=== PATIENT | female | born 1955 | race Asian ===

== ENCOUNTER 2016-06-25 10:42 | Emergency (ER) | payer BC, OTHER ==
[2016-06-25 10:49] VITALS: TEMP 98; BMI 25.4
[2016-06-25 12:18] LABS: URINE APPEARANCE CLEAR; URINE BILIRUBIN NEGATIVE (NEGATIVE); URINE BLOOD NEGATIVE (NEGATIVE); URINE COLOR STRAW; URINE GLUCOSE (UA) 3+ (NEGATIVE); URINE KETONE NEGATIVE (NEGATIVE); URINE LEUK ESTERASE NEGATIVE (NEGATIVE); URINE NITRITE NEGATIVE (NEGATIVE); URINE PROTEIN NEGATIVE (NEGATIVE); URINE UROBILINOGEN NEGATIVE E.U./dl (0.2-1.0)
[2016-06-25 13:05] LABS: BASOPHIL 1.1 % (0-2.0); EOSINOPHIL 4.3 % (0-4.5); MCH 28.8 pg (25.7-33.7); MEAN CELL VOLUME 84.8 fl (80-96); MEAN PLT VOLUME 7.9 fl (7.5-11.1); NEUTROPHILS 62.4 % (42.8-82.8); PLATELET COUNT 258 K/MM3 (134-434); RDW 13.3 % (11.6-15.6)
--- NOTE | 2016-06-25 13:37 | PDOC ---
History of Present Illness <Laura Sharma - Last Filed: 06/25/16 15:50> - General History Source: Patient Exam Limitations: No Limitations - History of Present Illness Travel History: Yes Initial Comments: 06/25/16 15:54 61y F hx of afib, niddm, fatty liver, presents with back pain/rlq pain since yesterday. Patient states the pain seems to be worse when she is moving around. It is associated with nausea without any vomiting. The patient denies any fevers, chills. Patient denies any diarrhea, dysuria, hematuria. pt was originall seen in [facility] for [facility] pain, but due to compaint of abd pain was sent to the [facility] ed for evaluation. pt denies nay numbes/tingling/weakness. 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 <Baljit Bennett - Last Filed: 06/25/16 17:05> - General Chief Complaint: Back Pain Stated Complaint: LOWER BACK PAIN/ RT SIDE PAIN Time Seen by Provider: 06/25/16 11:37 Past History <Laura Sharma - Last Filed: 06/25/16 15:50> - Past Medical History Cardiac Disorders: Yes (AFIB) Diabetes: Yes (NIDDM) Liver Disease: Yes (FATTY LIVER) - Immunization History Td Vaccination: No Immunization Up to Date: No - Psycho/Social/Smoking Cessation Hx Anxiety: No Suicidal Ideation: No Smoking Status: No Smoking History: Never smoked Have you smoked in the past 12 months: No Number of Cigarettes Smoked Daily: 0 Information on smoking cessation initiated: No Hx Alcohol Use: No Drug/Substance Use Hx: No Substance Use Type: None <Baljit Bennett - Last Filed: 06/25/16 17:05> - Past Medical History Allergies/Adverse Reactions: Allergies Allergy/AdvReac Type Severity Reaction Status Date / Time diphenhydramine HCl Allergy Verified 06/25/16 10:49 [From Benadryl] IV CONTRAST Allergy Severe Hives Uncoded 06/25/16 10:49 Home Medications: Ambulatory Orders Sitagliptin Phos/Metformin HCl [Janumet 50-1,000 mg Tablet] 1 each PO BID Aspirin Coated [Ecotrin -] 81 mg PO DAILY 12/20/14 Glimepiride 4 mg PO BID 12/20/14 Metoprolol Tartrate [Lopressor -] 50 mg PO DAILY 12/20/14 Docusate Sodium [Colace -] 100 mg PO BID #14 capsule 06/25/16 Psyllium Husk [Metamucil] 660 gm PO BID #1 bottle 06/25/16 Review of Systems - Review of Systems Able to Perform ROS?: Yes Comments:: 06/25/16 15:56 Constitutional - no reported Fever, Chills, weakness, HEENT: no reported vision changes, sore throat Respiratory: no reported cough, sob, hemoptysis Cardiac: no reported chest pain, palpitations, light headedness, leg swelling Abd/GI: +abd pain, nausea, no reported vomiting, blood per rectum, melena, diarrhea : no reported dysuria, frequency, discharge Musculskelatal -+ back pain, no reported joint swelling skin - no reported bruising, erythema, rash neurological: no reported headache, numbness, focal weakness, tingling, ataxia, weakness hematologic: no reported anemia, easy bruising, easy bleeding <Baljit Bennett - Last Filed: 06/25/16 17:05> *Physical Exam - Vital Signs Last Vital Signs Temp Pulse Resp BP Pulse Ox 98 F 88 20 137/81 99 06/25/16 10:46 06/25/16 15:31 06/25/16 15:31 06/25/16 15:31 06/25/16 15:31 <Laura Sharma - Last Filed: 06/25/16 15:50> - Vital Signs Last Vital Signs Temp Pulse Resp BP Pulse Ox 98 F 80 18 148/79 100 06/25/16 10:46 06/25/16 10:46 06/25/16 10:46 06/25/16 10:46 06/25/16 10:46 - Physical Exam Comments: 06/25/16 15:57 GENERAL: The patient is awake, alert, and fully oriented, Nontoxic - in no acute distress. HEAD: Normocephalic, atraumatic. EYES: extraocular movements intact, sclera anicteric, conjunctiva clear. ENT: Normal voice, Moist mucous membranes. NECK: Normal range of motion, supple LUNGS: Breath sounds equal, clear to auscultation bilaterally. No wheezes, no rhonchi, no rales. HEART: Regular rate and rhythm, normal S1 and S2 without murmur, rub or gallop. ABDOMEN: mild rlq tenderness, mild tenderness in the R flank/r paraspinal region , BACK: No midline tenderness in ervical/thoracic/lumbar region, no crepitus, erythema, fluctuance EXTREMITIES: Normal range of motion, no edema. No clubbing or cyanosis. No cords, erythema, or tenderness. NEUROLOGICAL: No facial assymetry, Normal speech, normal gait. PSYCH: Normal mood, normal affect. SKIN: Warm, Dry, normal turgor, <Donald,Baljit - Last Filed: 06/25/16 17:05> ED Treatment Course - LABORATORY CBC & Chemistry Diagram: 06/25/16 12:50 06/25/16 12:50 - ADDITIONAL ORDERS Additional order review: Laboratory Results 06/25/16 06/25/16 12:50 12:11 Sodium 139 Potassium 4.4 Chloride 101 Carbon Dioxide 27 Anion Gap 11 BUN 19 H Creatinine 1.1 H D Creat Clearance w eGFR 50.67 Random Glucose 161 H Calcium 9.3 Total Bilirubin 0.5 D AST 19 ALT 36 Alkaline Phosphatase 90 Total Protein 8.0 Albumin 4.2 Total Amylase 88 Lipase 409 H Urine Color Straw Urine Appearance Clear Urine pH 6.0 Ur Specific Hartly 1.028 Urine Protein Negative Urine Glucose (UA) 3+ H Urine Ketones Negative Urine Blood Negative Urine Nitrite Negative Urine Bilirubin Negative Urine Urobilinogen Negative Ur Leukocyte Esterase Negative 06/25/16 12:50 RBC 5.30 H MCV 84.8 MCHC 34.0 RDW 13.3 MPV 7.9 Neutrophils % 62.4 Lymphocytes % 23.9 Monocytes % 8.3 Eosinophils % 4.3 Basophils % 1.1 - RADIOLOGY Radiograph Interpretation: 06/25/16 15:50 EXAM: CT/ABDOMEN PELVIS CT W/O CONTR CT IMPRESSION: Axial imaging completed with coronal and sagittal reformations demonstrating normal visualization of midline urinary bladder with normal visualization of region of uterus and both adnexa Normal appendix is visualized in the right lower quadrant no CT evidence of appendicitis or appendicolith. Large amount of retained fecal material throughout the right and left colon with no CT findings of colitis or diverticulitis identified Symmetric appearance of both kidneys with no hydronephrosis or stones No adrenal nodules with atherosclerotic changes of the abdominal aorta with no aneurysm. No free air or free fluid with no signs of bowel obstruction and no inguinal or abdominal wall hernias identified Normal gallbladder is seen with normal visualization of liver and spleen including region of stomach and pancreas No infiltration of the mesentery or retroperitoneum is identified Normal lung bases with no free air or free fluid identified No suspicious osseous lesions seen on bone windows Normal region of cecum and terminal ileum identified - Medications Given in the ED: ED Medications Discontinued Medications Generic Name Dose Route Start Last Admin Trade Name Kiara PRN Reason Stop Dose Admin Sodium Chloride 1,000 mls @ 1,000 mls/hr 06/25/16 13:50 06/25/16 14:04 Normal Saline - IV 06/25/16 14:49 1,000 mls/hr .Q1H ONE Administration Morphine Sulfate 4 mg 06/25/16 13:50 06/25/16 14:04 Morphine Injection - IVPUSH 06/25/16 13:51 Not Given ONCE ONE <Laura Sharma - Last Filed: 06/25/16 15:50> - LABORATORY CBC & Chemistry Diagram: 06/25/16 12:50 06/25/16 12:50 - ADDITIONAL ORDERS Additional order review: Laboratory Results 06/25/16 12:11 Urine Color Straw Urine Appearance Clear Urine pH 6.0 Ur Specific Hartly 1.028 Urine Protein Negative Urine Glucose (UA) 3+ H Urine Ketones Negative Urine Blood Negative Urine Nitrite Negative Urine Bilirubin Negative Urine Urobilinogen Negative Ur Leukocyte Esterase Negative 06/25/16 12:50 RBC 5.30 H MCV 84.8 MCHC 34.0 RDW 13.3 MPV 7.9 Neutrophils % 62.4 Lymphocytes % 23.9 Monocytes % 8.3 Eosinophils % 4.3 Basophils % 1.1 - RADIOLOGY Radiology Studies Ordered: Category Date Time Status ABDOMEN & PELVIS CT WITH CONTR [CT] Stat CT Scan 06/25/16 13:36 Ordered <Baljit Bennett - Last Filed: 06/25/16 17:05> Medical Decision Making - Medical Decision Making 06/25/16 15:54 60 06/25/16 16:[address] c/w constipation n other acut disease labs reviewed lipase slightly elevated - no epigastric pain and sypmtoms inconsistent with pancreatitis pt tolerated PO intake of with pmd fu will d/c the pt with ibuprofen/tylenol for back pain colace and metamucil for constipation will have pt fu with pmd return precautions were discussed I discussed the physical exam findings, ancillary test results and final diagnoses with the patient. I answered all of the patient's questions. The patient was satisfied with the care received and felt comfortable with the discharge plan and treatment plan. The patient will call their primary care physician within 24 hours to arrange follow-up and will return to the Emergency Department with any new, persistent or worsening symptoms. <Baljit Bennett - Last Filed: 06/25/16 17:05> *DC/Admit/Observation/Transfer - Attestations Scribe Attestion: 06/25/16 15:51 Documentation prepared by Laura Sharma, acting as medical technologist hematology for Baljit Bennett MD. <Laura Sharma - Last Filed: 06/25/16 15:50> - Discharge Dispostion Admit: No <Baljit Bennett - Last Filed: 06/25/16 17:05> Diagnosis at time of Disposition: Low back pain Qualifiers: Chronicity: acute Back pain laterality: right Sciatica presence: without sciatica Qualified Code(s): M54.5 - Low back pain Constipation Qualifiers: Constipation type: other constipation type Qualified Code(s): K59.09 - Other constipation - Discharge Dispostion Disposition: HOME Condition at time of disposition: Improved - Prescriptions Prescriptions: Docusate Sodium [Colace -] 100 mg PO BID #14 capsule Psyllium Husk [Metamucil] 660 gm PO BID #1 bottle - Referrals Referrals: Silvia Davila MD [Primary Care Provider] - - Patient Instructions Printed Discharge Instructions: DI for Constipation, DI for Low Back Pain Additional Instructions: Return to the emergency department immediately with ANY new, persistent or worsening symptoms including worsening abdominal pain, fevers, chills, inability to tolerate oral intake, numbness, tingling, weakness, fevers or any other concerns. Please increase your water intake, increasing physical activity and increase her fiber intake Take ibuprofen for pain as needed. Apply heat to your sore muscles. You MUST call and follow up with your doctor tomorrow for further evaluation of your symptoms. Results were discussed with you. Please make sure your doctor reviews the results of your emergency evaluation. Print Language: SETSWANA
[2016-06-25 13:43] LABS: ALBUMIN 4.2 g/dl (3.4-5.0); BILIRUBIN,TOTAL 0.5 mg/dL (0.2-1.0); CALCIUM 9.3 mg/dL (8.5-10.1); CREATININE 1.1 mg/dL (0.55-1.02)
[2016-06-25] MEDS ORDERED: morphine CARPU-JECT 4 MG/1 ML DISP.SYRIN IVPUSH ONE (13:50)
[2016-06-25] MEDS ORDERED: SODIUM CHLORIDE 1,000 ML IV ONE (13:50)
[2016-06-25] MEDS ORDERED: morphine CARPU-JECT 4 MG/1 ML DISP.SYRIN ONE (13:59)
[2016-06-25 15:32] VITALS: BP 137/81; PULSE 88
== END 2016-06-25 17:05 | disposition home or self-care (01) ==
LOC: JER 10:42 → JERFT 10:42 → JER 17:05
PROC: 3E0337Z Introduction of Electrolytic and Water Balance Substance into Peripheral Vein, Percutaneous Approach (ICD-10-PCS; principal; 2016-06-25)
DX: K59.09 Other constipation (principal); M54.5 Low back pain; I48.91 Unspecified atrial fibrillation; E11.9 Type 2 diabetes mellitus without complications; Z79.84 Long term (current) use of oral hypoglycemic drugs; K76.0 Fatty (change of) liver, not elsewhere classified
CPT/HCPCS: 36415; 74176-TC; 80053; 81003; 82150; 83690; 85025; 99283-25

== ENCOUNTER 2017-03-02 20:34 | Emergency (ER) | payer BC, OTHER ==
--- NOTE | 2017-03-02 20:49 | PDOC ---
History of Present Illness - General History Source: Patient Exam Limitations: No Limitations - History of Present Illness Initial Comments: 03/02/17 21:06 HISTORY OF PRESENT ILLNESS The patient is a 62 year old female with a significant PMH of AFIB who presents to the emergency department with chills and shortness of breath beginning approximately 15 minutes ago. The patient also reports associated suprapubic pain that radiates to her lower back. She notes visiting her PCP about 2-3 weeks ago for treatment of a urinary infection. She was given Bactrim earlier today by her PCP. The patient denies chest pain, headache and dizziness. Denies fever, vomiting, diarrhea and constipation. Denies dysuria, frequency, urgency and hematuria. PAST MEDICAL HISTORY: AFIB PAST SURGICAL HISTORY: No significant history. FAMILY HISTORY: No pertinent history. SOCIAL HISTORY: Pt lives with family and is employed. MEDICATIONS: Reviewed. ALLERGIES: Diphenhydramine HCl, IV contrast. As per nursing notes REVIEW OF SYSTEMS General: (+) Chills. No fevers. no weakness, no weight loss HEENT: No change in vision. No sore throat,. No ear pain Cardiovascular: (+) Shortness of breath. No chest pain. Respiratory:No cough, or wheezing. Gastrointestinal: (+) Mild nausea. No vomiting, diarrhea or constipation, No rectal bleeding Genitourinary: No dysuria, hematuria, or frequency Musculoskeletal: No joint or muscle pain or swelling Neurologic: No headache, vertigo, dizziness or loss of consciousness Psychiatric: nor depression Skin: No rashes or easy bruising Endocrine: no increased thirst or abnormal weight change Allergic: no skin or latex allergy All other systems reviewed and normal PHYSICAL EXAM General: (+) Mild distress. Well-nourished well-developed individual HEENT: Throat: Normal, tonsils normal, no erythema or exudate Neck: Supple, no meningeal signs, no lymphadenopathy Eyes::Pupils equal reactive and round, extraocular motion intact Chest: Nontender to palpation Cardiac: S1-S2 normal, regular rate and rhythm, no murmurs rubs or gallops Respiratory: Lungs clear to auscultation bilateral Abdomen: (+) Mild suprapubic tenderness. No guarding, no rebound. Soft, nondistended, normal bowel sounds. Musculoskeletal: (+) Lower back tenderness bilateral with percussion. No CVA tenderness. Extremities: Warm, dry, no cyanosis, clubbing, or edema Skin: No rashes Neuro: Alert and oriented x3, nonfocal exam, grossly intact, normal gait Psych: Normal mood and affect <Narayan Cerrato - Last Filed: 03/02/17 21:13> - General History Source: Patient Exam Limitations: No Limitations - History of Present Illness Initial Comments: 03/02/17 22:07 A portion of this note was documented by scribe services under my direction. I have reviewed the details of the note, within reason, and agree with the documentation. The case summary and management plan written by me. Assessment and plan: This is a 62-year-old female who comes in with shaking chills and rigors. Patient was diagnosed today with a UTI and had taken one of her Macrobid. However she has had UTI symptoms prior to starting the antibiotic. Patient's white count was normal there was no left shift and she was afebrile here in the emergency room patient given 1 dose of ceftriaxone IV prior to discharge. Patient told to continue her Macrobid and follow-up with her primary care doctor. <Marlene Harris I - Last Filed: 03/02/17 22:10> - General Stated Complaint: CHEST PAIN Time Seen by Provider: 03/02/17 20:39 Past History <Narayan Cerrato - Last Filed: 03/02/17 21:13> - Past Medical History Cardiac Disorders: Yes (AFIB) Diabetes: Yes (NIDDM) Liver Disease: Yes (FATTY LIVER) - Immunization History Td Vaccination: No Immunization Up to Date: No - Psycho/Social/Smoking Cessation Hx Anxiety: No Suicidal Ideation: No Smoking Status: No Smoking History: Never smoked Have you smoked in the past 12 months: No Number of Cigarettes Smoked Daily: 0 Hx Alcohol Use: No Drug/Substance Use Hx: No Substance Use Type: None <Marlene Harris I - Last Filed: 03/02/17 22:10> - Past Medical History Allergies/Adverse Reactions: Allergies Allergy/AdvReac Type Severity Reaction Status Date / Time diphenhydramine HCl Allergy Verified 03/02/17 20:52 [From Benadryl] IV CONTRAST Allergy Severe Hives Uncoded 03/02/17 20:52 Home Medications: Ambulatory Orders Sitagliptin Phos/Metformin HCl [Janumet 50-1,000 mg Tablet] 1 each PO BID Aspirin Coated [Ecotrin -] 81 mg PO DAILY 12/20/14 Glimepiride 4 mg PO BID 12/20/14 Metoprolol Tartrate [Lopressor -] 50 mg PO DAILY 12/20/14 Docusate Sodium [Colace -] 100 mg PO BID #14 capsule 06/25/16 Psyllium Husk [Metamucil] 660 gm PO BID #1 bottle 06/25/16 *Physical Exam - Vital Signs Last Vital Signs Temp Pulse Resp BP Pulse Ox 98.3 F 100 H 20 190/94 100 03/02/17 20:50 03/02/17 20:50 03/02/17 20:50 03/02/17 20:50 03/02/17 20:50 <Narayan Cerrato - Last Filed: 03/02/17 21:13> Heart Score/ECG Review #1 ECG reviewed & interpreted by me at: 20:45 03/02/17 21:08 Vent rate 99 bpm NM interval 152 ms QRS duration 72 ms QT/QTc 374/479 ms P-R-T axes 56 44 72 Normal sinus rhythm Normal ECG <Narayan Cerrato - Last Filed: 03/02/17 21:13> ED Treatment Course - LABORATORY CBC & Chemistry Diagram: 03/02/17 21:20 03/02/17 21:20 <Marlene Harris I - Last Filed: 03/02/17 22:10> *DC/Admit/Observation/Transfer - Attestations Scribe Attestion: 03/02/17 21:06 Documentation prepared by Narayan Cerrato, acting as medical staffing coordinator for Marlene Tyler MD. <Narayan Cerrato - Last Filed: 03/02/17 21:13> - Discharge Dispostion Admit: No <Marlene Harris I - Last Filed: 03/02/17 22:10> Diagnosis at time of Disposition: Acute cystitis Qualifiers: Hematuria presence: without hematuria Qualified Code(s): N30.00 - Acute cystitis without hematuria - Discharge Dispostion Disposition: HOME Condition at time of disposition: Improved - Referrals Referrals: Silvia Davila MD [Primary Care Provider] - - Patient Instructions Additional Instructions: Continue to take your Macrobid as prescribed. Tylenol or Motrin as needed for fevers. Return to the emergency department immediately with ANY new, persistent or worsening symptoms. Continue any medications as previously prescribed by your physician. You should follow up with your primary doctor as soon as possible regarding today's emergency department visit. . Please make sure your doctor reviews the results of your emergency evaluation. Thank you for coming to the Emergency Department today for your care. It was a pleasure to see you today. Please note that your evaluation is INCOMPLETE until you follow-up with your doctor.
[2017-03-02 20:52] VITALS: BP 190/94; PULSE 100; TEMP 98.3; BMI 26.4
[2017-03-02 21:37] LABS: EOSINOPHIL 5.1 % (0-4.5); MCH 28.5 pg (25.7-33.7); MCHC 34.4 g/dl (32.0-36.0); MEAN CELL VOLUME 82.8 fl (80-96); MEAN PLT VOLUME 8.2 fl (7.5-11.1); NEUTROPHILS 45.9 % (42.8-82.8); PLATELET COUNT 288 K/MM3 (134-434); RDW 13.8 % (11.6-15.6); WHITE BLOOD COUNT 7.5 K/mm3 (4.0-10.0)
[2017-03-02 21:51] LABS: URINE APPEARANCE SLCLOUDY; URINE BILIRUBIN NEGATIVE (NEGATIVE); URINE BLOOD NEGATIVE (NEGATIVE); URINE COLOR LTYELLOW; URINE GLUCOSE (UA) 3+ (NEGATIVE); URINE KETONE TRACE (NEGATIVE); URINE NITRITE POSITIVE (NEGATIVE); URINE UROBILINOGEN NEGATIVE mg/dL (0.2-1.0)
[2017-03-02 21:52] LABS: URINE LEUK ESTERASE 3+ (NEGATIVE); URINE PROTEIN 2+ (NEGATIVE)
[2017-03-02 21:53] LABS: URINE BACTERIA MODERATE /hpf (NONE SEEN); URINE MUCUS RARE; URINE RBC 1 /hpf (0-3); URINE WBC 93 /hpf (3-5)
[2017-03-02] MEDS ORDERED: CEFTRIAXONE 1 GM in DEXTROSE 5%-WATER - 50 ML IVPB ONE (21:56)
[2017-03-02] MEDS ORDERED: CEFTRIAXONE 50 ML ONE (21:57)
--- NOTE | 2017-03-04 16:35 | EKG ---
Test Reason : Blood Pressure : / mmHG Vent. Rate : 099 BPM Atrial Rate : 099 BPM P-R Int : 152 ms QRS Dur : 072 ms QT Int : 374 ms P-R-T Axes : 056 044 072 degrees QTc Int : 479 ms NORMAL SINUS RHYTHM NORMAL ECG WHEN COMPARED WITH ECG OF 14-JAN-2004 10:26, T WAVE VARIATION Confirmed by AJITH BARAAJS MD ([id number]) on 03/04/2017 4:35:21 PM Referred By: Confirmed By:AJITH BARAJAS MD
--- NOTE | 2017-03-05 07:50 | PDOC ---
Patient Follow-up (Call Back) - Post ED Follow - Up Condition at time of discharge: Improved Disposition at time of original discharge: HOME Reason for Call Back: Abnwl. Lab (Patient on March 02 was given a dose of ceftriaxone prior to discharge. Patient was placed on no antibiotics upon discharge. Will place patient on Macrobid today until final sensitivity has resulted. Prescription called into [facility]. Spoke to Esthela, her daughter who will garbage pick up worker medication form [facility]. Pt pending final sensitivity, if not sensitive to Macrobid, please follow up)
== END 2017-03-02 22:17 | disposition home or self-care (01) ==
LOC: JER 20:34
DX: N39.0 Urinary tract infection, site not specified (principal)
CPT/HCPCS: 36415; 81003; 81015; 85025; 87086; 87186; 93005; 93010; 99281-25

== ENCOUNTER 2017-03-12 13:15 | Emergency (ER) | payer BC, OTHER ==
[2017-03-12 13:31] VITALS: BP 156/79; PULSE 71; TEMP 97.9; BMI 26.5
[2017-03-12] MEDS ORDERED: LORATADINE 10 MG TABLET PO ONE (15:00)
[2017-03-12] MEDS ORDERED: LORATADINE 10 MG TABLET ONE (15:04)
--- NOTE | 2017-03-12 15:09 | PDOC ---
History of Present Illness - General Chief Complaint: Allergic Reaction Stated Complaint: ALLERGIC REACTION Time Seen by Provider: 03/12/17 14:50 History Source: Patient Exam Limitations: No Limitations - History of Present Illness Initial Comments: 03/12/17 15:07 Patient is a 62-year-old female with history of hypertension, diabetes, presents emergency Department with swelling to dorsum of left hand. 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 Multiple other areas of pruritus with no visible lesions. Was sent for evaluation due to swelling. Allergies: No known allergies Medications: See medication list Family History: Non-contributory Social History: Denies smoking, alcohol use, or IVDU Review of Systems GENERAL/CONSTITUTIONAL: No fever or chills. No weakness. No weight change. HEAD, EYES, EARS, NOSE AND THROAT: No change in vision. No ear pain or discharge. No sore throat. CARDIOVASCULAR: No chest pain or shortness of breath. RESPIRATORY: No cough, wheezing, or hemoptysis. GASTROINTESTINAL: No nausea, vomiting, diarrhea or constipation. No rectal bleeding. GENITOURINARY: No dysuria, frequency, or change in urination. MUSCULOSKELETAL: No joint or muscle swelling or pain. No neck or back pain. SKIN No rash or easy bruising. Macular lesion, erythema and edema to dorsum of left hand NEUROLOGIC: No headache, vertigo, loss of consciousness, or loss of sensation. PSYCHIATRIC: No depression or anxiety. ENDOCRINE: No increased thirst. No abnormal weight change. HEMATOLOGIC/LYMPHATIC: No anemia, easy bleeding, or history of blood clots. Physical Exam: GENERAL: The patient is awake, alert, and fully oriented, in no acute distress. HEAD: Normal with no signs of trauma. EYES: Pupils equal, round and reactive to light, extraocular movements intact, sclera anicteric, conjunctiva clear. ENT: Ears normal, nares patent, oropharynx clear without exudates. Moist mucous membranes. No uvula deviation NECK: Normal range of motion, supple without lymphadenopathy, JVD, or masses. LUNGS: Breath sounds equal, clear to auscultation bilaterally. No wheezes, and no crackles. HEART: Regular rate and rhythm, normal S1 and S2 without murmur, rub or gallop. ABDOMEN: Soft, nontender, normoactive bowel sounds. No guarding, no rebound. No masses. No bruising or abrasions RECTAL : Guaiac negative, normal rectal tone. MUSCULOSKELETAL: Normal range of motion, no edema. No clubbing or cyanosis. No cords, erythema, or tenderness. No CVA Tenderness with fist. NEUROLOGICAL: Cranial nerves II through XII grossly intact. Normal speech, normal gait. PSYCH: Normal mood, normal affect. SKIN: Warm, Dry, normal turgor, no rashes. Erythematous, warm, well defined area to dorsum of left hand with small macular lesion. Non-circumferential. Mildly warm. Good range of motion to hand. 03/12/17 16:42 Past History - Past Medical History Allergies/Adverse Reactions: Allergies Allergy/AdvReac Type Severity Reaction Status Date / Time diphenhydramine HCl Allergy Verified 03/12/17 13:27 [From Benadryl] IV CONTRAST Allergy Severe Hives Uncoded 03/12/17 13:27 Home Medications: Ambulatory Orders Sitagliptin Phos/Metformin HCl [Janumet 50-1,000 mg Tablet] 1 each PO BID Aspirin Coated [Ecotrin -] 81 mg PO DAILY 12/20/14 Metoprolol Tartrate [Lopressor -] 50 mg PO DAILY 12/20/14 Loratadine [Claritin -] 10 mg PO DAILY #30 tablet 03/12/17 Rosuvastatin [Crestor -] 40 mg PO DAILY 03/12/17 Cardiac Disorders: Yes (AFIB) Diabetes: Yes (NIDDM) Liver Disease: Yes (FATTY LIVER) - Immunization History Td Vaccination: No Immunization Up to Date: No - Suicide/Smoking/Psychosocial Hx Smoking Status: No Smoking History: Never smoked Have you smoked in the past 12 months: No Number of Cigarettes Smoked Daily: 0 Information on smoking cessation initiated: No Hx Alcohol Use: No Drug/Substance Use Hx: No Substance Use Type: None *Physical Exam - Vital Signs Last Vital Signs Temp Pulse Resp BP Pulse Ox 97.9 F 71 16 156/79 100 03/12/17 13:28 03/12/17 13:28 03/12/17 13:28 03/12/17 13:28 03/12/17 13:28 Medical Decision Making - Medical Decision Making 03/12/17 16:44 A/P: Patient here for evaluation of allergic reaction to bug bite on dorsum of left hand. No other lesions to the body are noted. Patient reports that she has itching to other areas without lesions. Unable to give patient Benadryl states that she had a reaction to IV contrast in the past and when she took the Benadryl to resolve the allergic reaction she fell asleep and thinks that she may have an allergy. Patient is requesting another medication for allergies, we will give Claritin while in emergency Department and monitor patient for one hour after administration. Patient to apply cool compresses to hands, Hytone cream locally to area if pruritic. After one hour there was no allergic reaction noted to Claritin, patient states she feels so much better with no itching after medication, patient is requesting prescription due to multiple environmental allergens and she was nervous in the past to take medication. I will give patient prescription, with strict follow-up instructions for primary care doctor for evaluation. I discussed the physical exam findings, ancillary test results and final diagnoses with the patient. I answered all of the patient's questions. The patient was satisfied with the care received and felt comfortable with the discharge plan and treatment plan. The patient will call to arrange follow-up and will return to the Emergency Department with any new, persistant or worsening symptoms. *DC/Admit/Observation/Transfer Diagnosis at time of Disposition: Bug bite of hand Qualifiers: Encounter type: initial encounter Laterality: right Qualified Code(s): S60.561A - Insect bite (nonvenomous) of right hand, initial encounter - Discharge Dispostion Disposition: HOME Condition at time of disposition: Good Admit: No - Prescriptions Prescriptions: Loratadine [Claritin -] 10 mg PO DAILY #30 tablet - Referrals Referrals: Silvia Davila MD [Primary Care Provider] - - Patient Instructions Printed Discharge Instructions: How to Care for an Insect Bite or Sting Additional Instructions: Cool compresses to right arm, Claritin as needed for allergies If after 3 days any increased redness, swelling, or evidence of infection please return immediately to ER - Post Discharge Activity Forms/Work/School Notes: Back to Work
== END 2017-03-12 16:21 | disposition home or self-care (01) ==
LOC: JERFT 13:15
DX: S60.561A Insect bite (nonvenomous) of right hand, initial encounter (principal); E11.9 Type 2 diabetes mellitus without complications; I10 Essential (primary) hypertension; K76.0 Fatty (change of) liver, not elsewhere classified; I48.91 Unspecified atrial fibrillation; Z79.84 Long term (current) use of oral hypoglycemic drugs; X58.XXXA Exposure to other specified factors, initial encounter; Y93.89 Activity, other specified; Y92.219 Unspecified school as the place of occurrence of the external cause; Y99.0 Civilian activity done for income or pay
CPT/HCPCS: 99281-25

== ENCOUNTER 2017-10-25 14:50 | Emergency (ER) | payer BC, OTHER ==
[2017-10-25 15:14] VITALS: BP 159/92; PULSE 80; TEMP 98.6; BMI 29.8
--- NOTE | 2017-10-25 15:14 | PDOC ---
Rapid Medical Evaluation Time Seen by Provider: 10/25/17 15:10 Medical Evaluation: Allergies Allergy/AdvReac Type Severity Reaction Status Date / Time diphenhydramine HCl Allergy Verified 03/12/17 13:27 [From Benadryl] IV CONTRAST Allergy Severe Hives Uncoded 03/12/17 13:27 I have performed a brief in-person evaluation of this patient. The patient presents with a chief complaint of: fell on coccyx and low back at work and now has low back pain Pertinent physical exam findings: no midline TTP I have ordered the following: xray of lumbar, sacral and coccyx The patient will proceed to the ED for further evaluation. Discharge Disposition - Diagnosis Low back pain Qualifiers: Chronicity: acute Back pain laterality: bilateral Sciatica presence: without sciatica Qualified Code(s): M54.5 - Low back pain Fall Qualifiers: Encounter type: initial encounter Qualified Code(s): W19.XXXA - Unspecified fall, initial encounter - Referrals Referrals: Silvia Davila MD [Primary Care Provider] - - Patient Instructions - Post Discharge Activity
--- NOTE | 2017-10-25 15:47 | PDOC ---
*Physical Exam - Vital Signs Last Vital Signs Temp Pulse Resp BP Pulse Ox 98.6 F 80 15 159/92 98 10/25/17 15:10 10/25/17 15:10 10/25/17 15:10 10/25/17 15:10 10/25/17 15:10 - Physical Exam Comments: Lumbar spine skin color and temperature are normal. There is decreased painful range of motion. PAralumbar musculature tenderness as well as tenderness about the sacrum. 5 out of 5 strength in bilateral lower extremities. Patella and Achilles reflexes are 2+ and symmetric bilaterally. There is no clonus. Straight leg raise test is negative bilaterally. Thighs and calves are soft and nontender. There are no gross sensory motor deficits. Neurovascularly intact. 10/25/17 16:24 Medical Decision Making - Medical Decision Making X-rays of the lumbar spine and sacrum show no evidence of acute fracture is mild degenerative changes and straightening of the lumbar lordosis the abdominal aorta is calcified 10/25/17 15:46 10/25/17 16:23 The patient also complains of the dysuria times the last 3 days. Her UA shows UTI. Cipro 500 twice a day 3 days. Also prescribed her stool softeners and Motrin for her lumbar strain and coccyx pain. She was also advised to get a donut pad. Follow up with orthopedic surgery for her lower back and coccyx pain follow-up with her PCP for her UTI. *DC/Admit/Observation/Transfer Diagnosis at time of Disposition: Acute cystitis Low back pain Qualifiers: Chronicity: acute Back pain laterality: bilateral Sciatica presence: without sciatica Qualified Code(s): M54.5 - Low back pain Fall Qualifiers: Encounter type: initial encounter Qualified Code(s): W19.XXXA - Unspecified fall, initial encounter - Discharge Dispostion Disposition: HOME Condition at time of disposition: Stable Decision to Admit order: No - Referrals Referrals: Silvia Davila MD [Primary Care Provider] - Rickey Zavala MD [Staff Physician] - - Patient Instructions Additional Instructions: Have a urinary tract infection take all antibiotics as prescribed. The Motrin has been prescribed. Pain because of your fall and your associated lower back symptoms. Also advised to take Colace if you have increased low back pain using the bathroom defecation. Also advised to sit on a donut pad to can get this at any drugstore if you have difficulty sitting. Again follow-up with orthopedics for evaluation of lower back pain as well as your primary care physician for evaluation of urinary tract infection. Return to the emergency room if symptoms worsen or go unresolved prior to follow up - Post Discharge Activity
[2017-10-25 16:15] LABS: URINE APPEARANCE CLEAR; URINE BILIRUBIN NEGATIVE (<2.0 mg/dL); URINE COLOR LTYELLOW; URINE GLUCOSE (UA) 3+ (NEGATIVE); URINE KETONE TRACE (NEGATIVE); URINE NITRITE POSITIVE (NEGATIVE); URINE PROTEIN NEGATIVE (NEGATIVE); URINE UROBILINOGEN NEGATIVE mg/dL (0.2-1.0)
[2017-10-25 16:19] LABS: URINE LEUK ESTERASE 1+ (NEGATIVE)
[2017-10-25 16:21] LABS: URINE MUCUS RARE
== END 2017-10-25 16:49 | disposition home or self-care (01) ==
LOC: JERFT 14:50
DX: S39.82XA Other specified injuries of lower back, initial encounter (principal); N30.00 Acute cystitis without hematuria; W19.XXXA Unspecified fall, initial encounter; Y93.89 Activity, other specified; Y92.218 Other school as the place of occurrence of the external cause; Y99.0 Civilian activity done for income or pay
CPT/HCPCS: 72100-TC-FY; 72220-TC-FY; 81003; 81015; 87086; 87186; 99281-25

== ENCOUNTER 2018-10-10 18:39 | Emergency (ER) | payer OTHER, BC ==
[2018-10-10 18:54] VITALS: BP 174/99; PULSE 99; TEMP 97.7; BMI 25.4
[2018-10-10] MEDS ORDERED: ACETAMINOPHEN 500 MG TABLET (FP) PO ONE (19:21)
[2018-10-10] MEDS ORDERED: ACETAMINOPHEN 500 MG TABLET (FP) ONE (19:28)
--- NOTE | 2018-10-10 19:31 | PDOC ---
History of Present Illness - General History Source: Patient Exam Limitations: No Limitations - History of Present Illness Initial Comments: 10/10/18 19:23 HISTORY OF PRESENT ILLNESS: This 63-year-old woman past medical history of A. fib- not on AC, NIDDM, sacral fracture 10/2017 of presents emergency department for evaluation of increased sacral pain during bowel movements and firm stools for one week. Patient's last normal bowel movement was approximately 4 days ago but was firmer than her usual stools. She denies any rectal bleeding, urinary incontinence, fecal incontinence, urinary retention, saddle anesthesia. No recent travel or sick contacts. PAST MEDICAL HISTORY: see HPI SURGICAL HISTORY: Denies ALLERGIES: Benadryl, IV contrast REVIEW OF SYSTEMS General/Constitutional: Denies fever or chills. Denies weakness, weight change. HEENT: Denies change in vision. Denies ear pain or discharge. Denies sore throat. Cardiovascular: Denies chest pain or shortness of breath. Respiratory: Denies cough, wheezing, or hemoptysis. Gastrointestinal: see HPI Genitourinary: Denies dysuria, frequency, or change in urination. Musculoskeletal: Denies joint or muscle swelling or pain. Denies neck or back pain. Skin and breasts: Denies rash or easy bruising. Neurologic: Denies headache, vertigo, loss of consciousness, or loss of sensation. Psychiatric: Denies depression or anxiety. Endocrine: Denies increased thirst. Denies abnormal weight change. Hematologic/Lymphatic: Denies anemia, easy bleeding, or history of blood clots. Allergic/Immunologic: Denies hives or skin allergy. Denies latex allergy. PHYSICAL EXAM General Appearance: Well-appearing, appropriately dressed. No apparent distress , no intoxication. Musculoskeletal/Extremities: Normal inspection. FROM of all extremities, normal capillary refill. Lower back closer to palpation bilateral her spinous muscles. No bony tenderness or deformity present. Patient with increased pain over sacrum. Full sensation to bilateral lower extremities. Ambulatory with steady gait. Rectal: Refused Integumentary: Appropriate color, dry, warm. No cyanosis, erythema, jaundice or rash Neurologic: learning support aide II-XII intact. Fully oriented, alert. Appropriate mood/affect. Motor strength 5/5. No appreciable EOM palsy, facial droop or sensory deficit. <Yonny Rodriguez - Last Filed: 10/10/18 19:46> <Hilda Martinez - Last Filed: 10/10/18 20:41> - General Chief Complaint: Back Pain Stated Complaint: LWR BACK PAIN Time Seen by Provider: 10/10/18 19:08 Past History - Past Medical History Cardiac Disorders: Yes (AFIB) COPD: No Diabetes: Yes (NIDDM) Liver Disease: Yes (FATTY LIVER) - Immunization History Td Vaccination: No Immunization Up to Date: No - Suicide/Smoking/Psychosocial Hx Smoking Status: No Smoking History: Never smoked Have you smoked in the past 12 months: No Number of Cigarettes Smoked Daily: 0 Hx Alcohol Use: No Drug/Substance Use Hx: No Substance Use Type: None <Yonny Rodriguez - Last Filed: 10/10/18 19:46> <Hilda Martinez - Last Filed: 10/10/18 20:41> - Past Medical History Allergies/Adverse Reactions: Allergies Allergy/AdvReac Type Severity Reaction Status Date / Time diphenhydramine HCl Allergy Verified 12/30/17 23:04 [From Renard] IV CONTRAST Allergy Severe Hives Uncoded 12/30/17 23:04 Home Medications: Ambulatory Orders Sitagliptin Phos/Metformin HCl [Janumet 50-1,000 mg Tablet] 1 each PO BID Aspirin Coated [Ecotrin -] 81 mg PO DAILY 12/20/14 Metoprolol Tartrate [Lopressor -] 50 mg PO DAILY 12/20/14 Rosuvastatin [Crestor -] 40 mg PO DAILY 03/12/17 Cephalexin Monohydrate [Keflex -] 500 mg PO BID #10 capsule 12/26/17 Propafenone HCl [Propafenone HCl ER] 225 mg PO ASDIR 12/26/17 Valacyclovir HCl [Valtrex -] 1,000 mg PO TID #21 tablet 12/31/17 *Physical Exam - Vital Signs Last Vital Signs Temp Pulse Resp BP Pulse Ox 97.7 F 99 H 18 174/99 H 99 10/10/18 18:51 10/10/18 18:51 10/10/18 18:51 10/10/18 18:51 10/10/18 18:51 <Yonny Rodriguez - Last Filed: 10/10/18 19:46> - Vital Signs Last Vital Signs Temp Pulse Resp BP Pulse Ox 97.7 F 99 H 18 174/99 H 99 10/10/18 18:51 10/10/18 18:51 10/10/18 18:51 10/10/18 18:51 10/10/18 18:51 <Hilda Martinez - Last Filed: 10/10/18 20:41> ED Treatment Course - RADIOLOGY Radiology Studies Ordered: Category Date Time Status ABDOMEN FLAT & UPRIGHT [RAD] Stat Radiology 10/10/18 19:21 Ordered <Yonny Rodriguez - Last Filed: 10/10/18 19:46> - Medications Given in the ED: ED Medications Discontinued Medications Generic Name Dose Route Start Last Admin Trade Name Freq PRN Reason Stop Dose Admin Acetaminophen 1,000 mg 10/10/18 19:21 10/10/18 19:28 Tylenol - PO 10/10/18 19:22 1,000 mg ONCE ONE Administration Sodium Phosphate 133 ml 10/10/18 19:44 10/10/18 19:52 Fleet Adult Rectal Enema - [place] 10/10/18 19:45 133 ml ONCE ONE Administration <Hilda Martinez - Last Filed: 10/10/18 20:41> Medical Decision Making - Medical Decision Making 10/10/18 19:32 A/P: 63-year-old woman with increased sacral pain with bowel movements No bony tenderness in the lumbar spine. Tenderness to palpation over the lumbar paraspinous muscles. No palpable muscle spasms noted Increased tenderness over sacrum during palpation no crepitus or step-offs noted. Refusing rectal exam Tylenol 1 g orally now Abdominal x-ray Reassess 10/10/18 19:46 Abdominal x-ray reveals large fecal burden. Patient reports bowel movement after the x-ray which was firm and not a full evacuation of her bowels. Fleet Enema Discharge home with recommendations for improved bowel regimen 10/10/18 19:51 <Yonny Rodriguez - Last Filed: 10/10/18 19:46> - Medical Decision Making 10/10/18 20:29 patient return to emergency department for clarification of diagnosis. Patient has long history of encopresis due to a spinal injury/coccyx fracture which has left her with difficulty defecating and painful defecation as well as constipation. Discussed need for continued stool softening and follow -up with neurosurgeon who has been treating her for this same. Diagnosis is encopresis turned to functional <Hilda Martinez - Last Filed: 10/10/18 20:41> *DC/Admit/Observation/Transfer - Discharge Dispostion Decision to Admit order: No <Yonny Rodriguez - Last Filed: 10/10/18 19:46> <Hilda Martinez - Last Filed: 10/10/18 20:41> Diagnosis at time of Disposition: Primary organic encopresis Constipation Qualifiers: Constipation type: unspecified constipation type Qualified Code(s): K59.00 - Constipation, unspecified - Discharge Dispostion Disposition: HOME Condition at time of disposition: Stable - Referrals Referrals: Silvia Davila MD [Primary Care Provider] - - Patient Instructions Additional Instructions: Keep well-hydrated. May try warm prune juice to help move your bowels. Increased dietary fiber. Make an appointment with your primary doctor for reevaluation. Return to emergency department for any new or worsening symptoms. Thank you very much for choosing us to provide your emergent health care needs. - Post Discharge Activity
[2018-10-10] MEDS ORDERED: SODIUM PHOSPHATE/NA BIPHOS 133 ML ENEMA PR ONE (19:44)
== END 2018-10-10 19:59 | disposition home or self-care (01) ==
LOC: JERFT 18:39
DX: R15.9 Full incontinence of feces (principal); K59.00 Constipation, unspecified; I48.91 Unspecified atrial fibrillation; E11.9 Type 2 diabetes mellitus without complications; Z79.84 Long term (current) use of oral hypoglycemic drugs
CPT/HCPCS: 74019-TC-FY; 99281-25

== ENCOUNTER 2020-05-17 13:58 | Emergency (ER) | payer BC, OTHER ==
[2020-05-17 14:12] VITALS: TEMP 98.2
[2020-05-17 17:52] LABS: BASO % 0.7 % (0-2.0); EOS % 1.3 % (0-4.5); HEMATOCRIT 42.8 % (32.4-45.2); HEMOGLOBIN 14.7 GM/dL (10.7-15.3); LYMPH % 13.6 % (8-40); MCH 29.1 pg (25.7-33.7); MCHC 34.4 g/dl (32.0-36.0); MEAN CELL VOLUME 84.5 fl (80-96); MEAN PLT VOLUME 8.2 fl (7.5-11.1); NEUT % 77.4 % (42.8-82.8); PLATELET COUNT 319 K/MM3 (134-434); RBC 5.07 M/mm3 (3.60-5.2); RDW 13.3 % (11.6-15.6)
[2020-05-17 17:56] LABS: EPI CELLS 2 /uL (0-25.1); HYALINE CASTS 1 /uL (0-3.1); PH,URINE 6.5 (5.0-8.0); URINE APPEARANCE CLOUDY; URINE BACTERIA 5270 /uL (0-1359); URINE BILIRUBIN NEGATIVE (NEGATIVE); URINE COLOR YELLOW; URINE GLUCOSE (UA) 3+ (NEGATIVE); URINE KETONE NEGATIVE (NEGATIVE); URINE LEUK ESTERASE 2+ (NEGATIVE); URINE NITRITE POSITIVE (NEGATIVE); URINE PROTEIN 1+ (NEGATIVE); URINE RBC 171 /uL (0-23.9); URINE UROBILINOGEN 0.2 mg/dL (0.2-1.0); URINE WBC 1050 /uL (0-25.8)
[2020-05-17 18:10] LABS: CHLORIDE 99 mmol/L (98-107); POTASSIUM 4.7 mmol/L (3.5-5.1); SODIUM 134 mmol/L (136-145)
[2020-05-17 18:13] LABS: ALBUMIN 4.1 g/dl (3.4-5.0); ANION GAP 5 MMOL/L (8-16); BLOOD UREA NITROGEN 16.3 mg/dL (7-18); CALCIUM 9.8 mg/dL (8.5-10.1); CO2 30 mmol/L (21-32); GLUCOSE,RANDOM 229 mg/dL (74-106); LIPASE 249 U/L (73-393)
[2020-05-17 18:16] LABS: CREATININE 0.9 mg/dL (0.55-1.3); SGOT/AST 11 U/L (15-37); SGPT/ALT 27 U/L (13-61)
[2020-05-17 18:18] LABS: BILIRUBIN,TOTAL 0.7 mg/dL (0.2-1); TOT PROT 7.8 g/dl (6.4-8.2)
[2020-05-17 18:19] LABS: ALK PHOS 118 U/L (45-117)
[2020-05-17] MEDS ORDERED: CEFTRIAXONE 1,000 MG in DEXTROSE 5%-WATER - 50 ML IVPB ONE (18:26)
[2020-05-17] MEDS ORDERED: CEFTRIAXONE 1 GM/50 ML BAG ONE (18:35)
[2020-05-17 21:43] VITALS: BP 152/71; PULSE 86
== END 2020-05-17 21:44 | disposition home or self-care (01) ==
LOC: JER 13:58
DX: N30.00 Acute cystitis without hematuria (principal)
CPT/HCPCS: 36415; 74176-TC; 80053; 81003; 82550; 83690; 84484; 85025; 87086; 87186; 93005; 93010; 99285-25

== ENCOUNTER 2020-10-10 18:35 | Emergency (ER) | payer BC, OTHER ==
[2020-10-10 19:05] VITALS: TEMP 98; BMI 32.5
[2020-10-10] MEDS ORDERED: LIDOCAINE 5% TOPICAL PATCH TP ONE (20:16)
[2020-10-10] MEDS ORDERED: ACETAMINOPHEN 1000 MG/100 ML VIAL (NON FORMULARY) IVPB ONE (20:16)
[2020-10-10] MEDS ORDERED: LIDOCAINE 5% TOPICAL PATCH ONE (20:34)
[2020-10-10] MEDS ORDERED: ACETAMINOPHEN INJECTION 100 ML IVPB ONE (21:00)
[2020-10-10] MEDS ORDERED: ACETAMINOPHEN 325 MG TABLET (FP) PO ONE (21:03)
[2020-10-10] MEDS ORDERED: ACETAMINOPHEN 325 MG TABLET (FP) ONE (21:05)
[2020-10-10 21:28] LABS: EPI CELLS 0 /uL (0-25.1); HYALINE CASTS 0 /uL (0-3.1); URINE APPEARANCE CLOUDY; URINE BACTERIA >9,000 /uL (0-1359); URINE BILIRUBIN NEGATIVE (NEGATIVE); URINE COLOR YELLOW; URINE GLUCOSE (UA) 3+ (NEGATIVE); URINE KETONE TRACE (NEGATIVE); URINE LEUK ESTERASE NEGATIVE (NEGATIVE); URINE NITRITE NEGATIVE (NEGATIVE); URINE PROTEIN 1+ (NEGATIVE); URINE RBC 17 /uL (0-23.9); URINE UROBILINOGEN 0.2 mg/dL (0.2-1.0)
[2020-10-10 23:17] VITALS: BP 138/81; PULSE 89
[2020-10-11 00:04] LABS: URINE WBC 108 /uL (0-25.8)
[2020-10-11] MEDS ORDERED: LIDOCAINE PATCH REMOVAL MC SCH (08:00)
== END 2020-10-10 23:35 | disposition home or self-care (01) ==
LOC: JER 18:35
DX: S39.012A Strain of muscle, fascia and tendon of lower back, initial encounter (principal); R07.89 Other chest pain
CPT/HCPCS: 70450-TC; 71046-TC-FY; 71101-TC-RT-FY; 71250-TC; 72125-TC; 72128-TC; 73030-TC-RT-FY; 81003; 99285-25

== ENCOUNTER 2023-09-27 22:49 | Emergency (ER) | payer BC, OTHER ==
[2023-09-27 23:24] VITALS: TEMP 98.8; BMI 32.6
[2023-09-28] MEDS ORDERED: IPRATROPIUM BR 0.02% 0.5 MG/2.5 ML VIAL.NEB. NEB ONE (00:35)
[2023-09-28] MEDS: IPRATROPIUM BR 0.02% 0.5 MG/2.5 ML VIAL.NEB. NEB ONE (00:41)
[2023-09-28] MEDS ORDERED: cefTRIAXone SODIUM 1 GM VIAL ONE (01:17)
[2023-09-28] MEDS ORDERED: AZITHROMYCIN 500 MG VIAL IVPB ONE (01:17)
[2023-09-28 01:30] LABS: EOS % 5.2 % (0-4.5); HEMOGLOBIN 13.8 GM/dL (10.7-15.3); LYMPH % 21.1 % (8-40); MCH 28.5 pg (25.7-33.7); MCHC 33.7 g/dl (32.0-36.0); MEAN CELL VOLUME 84.6 fl (80-96); MEAN PLT VOLUME 8.4 fl (7.5-11.1); MONO % 8.3 % (3.8-10.2); NEUT % 64.4 % (42.8-82.8); PLATELET COUNT 298 10^3/uL (134-434); RBC 4.85 M/mm3 (3.60-5.2); RDW 14.5 % (11.6-15.6); WHITE BLOOD COUNT 9.7 K/mm3 (4.0-10.0)
[2023-09-28] MEDS: CEFTRIAXONE 1 GM in DEXTROSE 5%-WATER - 50 ML IVPB ONE (01:38)
[2023-09-28 01:47] LABS: POTASSIUM 4.8 mmol/L (3.5-5.1)
[2023-09-28 01:48] LABS: CALCIUM 9.1 mg/dL (8.5-10.1)
[2023-09-28 01:49] LABS: ALBUMIN 3.8 g/dl (3.4-5.0); BLOOD UREA NITROGEN 24.3 mg/dL (7-18)
[2023-09-28 01:52] LABS: CREATININE 1.2 mg/dL (0.55-1.3)
[2023-09-28 01:54] LABS: BILIRUBIN,TOTAL 0.7 mg/dL (0.2-1); TOT PROT 7.5 g/dl (6.4-8.2)
[2023-09-28] MEDS: AZITHROMYCIN IVPB 500 MG in DEXTROSE 5%-WATER - 250 ML IVPB ONE (01:55)
[2023-09-28] MEDS: INSULIN (NOVOLOG MIX 70/30) 100 UNITS/ML MDV SQ ONE (02:21)
[2023-09-28] MEDS ORDERED: INSULIN REGULAR HUMAN 100 UNITS/ML *VIAL ONE (02:24)
[2023-09-28] MEDS: INSULIN REGULAR HUMAN 100 UNITS/ML *VIAL IVPUSH ONE (02:28)
[2023-09-28 02:34] VITALS: BP 119/62; PULSE 78; RESP 18
== END 2023-09-28 03:17 | disposition admitted as inpatient to this hospital (09) ==
LOC: FER 22:49
PROC: 3E03329 Introduction of Other Anti-infective into Peripheral Vein, Percutaneous Approach (ICD-10-PCS; principal; 2023-09-28)
PROC: 3E03329 Introduction of Other Anti-infective into Peripheral Vein, Percutaneous Approach (ICD-10-PCS; 2023-09-28)
PROC: 3E0F7GC Introduction of Other Therapeutic Substance into Respiratory Tract, Via Natural or Artificial Opening (ICD-10-PCS; 2023-09-28)
DX: R06.2 Wheezing (principal); J18.9 Pneumonia, unspecified organism; E11.9 Type 2 diabetes mellitus without complications; K75.9 Inflammatory liver disease, unspecified; R07.9 Chest pain, unspecified; Z20.822 Contact with and (suspected) exposure to COVID-19
CPT/HCPCS: 0241U-QW; 36415; 71046-TC-FY; 80053; 85025; 87040; 93005; 99285-25